=== PATIENT | male | born 1950 | race Caucasian/White ===

== ENCOUNTER → 2018-08-09 | Outpatient (CLI) | payer OTHER | LOC: BMCIMAGING 10:16 | PROVIDERS: ATTEND Internal Medicine Endocrinology, Diabetes & Metabolism | DX: Z13.820 Encounter for screening for osteoporosis (principal); M81.0 Age-related osteoporosis without current pathological fracture; Z87.81 Personal history of (healed) traumatic fracture; Z79.890 Hormone replacement therapy ==

== ENCOUNTER 2018-08-22 15:51 | Inpatient (IN) | payer OTHER ==
--- NOTE | 2018-08-22 17:16 | EDPHY ---
H & P Time Seen by Provider: 08/22/18 15:57 HPI/ROS: CHIEF COMPLAINT: Right hip pain HISTORY OF PRESENT ILLNESS: Patient states he was at [facility] in the parking lot this morning when he slipped on ice and fell injuring his right hip. He was wearing ski boots at the time. He did not ski that day and has been unable to bear weight on this hip since. He states [place] the [place] area [place] others skied and came in to the emergency department this afternoon for evaluation. He denies hitting his head. He denies neck pain or back pain. He has no numbness or tingling in his extremities. He has had no chest pain, shortness of breath, nausea or vomiting. REVIEW OF SYSTEMS: Constitutional: No fever, no chills. Eyes: No discharge. ENT: No sore throat. Cardiovascular: No chest pain, no palpitations. Respiratory: No cough, no shortness of breath. Gastrointestinal: No abdominal pain, no vomiting. Genitourinary: No dysuria. Musculoskeletal: No back pain. Right hip pain as above Skin: No rashes. Neurological: No headache. General Appearance: Alert, no distress. Eyes: Pupils equal and round no pallor or injection. ENT, Mouth: Mucous membranes moist. Respiratory: There are no retractions, lungs are clear to auscultation. Cardiovascular: Regular rate and rhythm. Gastrointestinal: Abdomen is soft and nontender, no masses, bowel sounds normal. Neurological: Awake, alert, cranial nerves intact. Normal strength and sensation all 4 extremities. Skin: Warm and dry, no rashes. Musculoskeletal: Neck is supple nontender. No CTLS spine tenderness to palpation. Extremities are symmetrical, pain with passive range of motion to right hip. No shortening or rotation to right leg. Distal circulation, sensation, movement intact. Pelvis is stable. Tenderness to palpation at the greater trochanter. Psychiatric: Patient is oriented X 3, there is no agitation. Medical/surgical history: Hypothyroid. Surgeries include anal fissure, tonsillectomy. Social history: No tobacco, ETOH or drugs. Last p.o. Was a protein shake at 2: 30 a.m.. Smoking Status: Never smoked Constitutional: Initial Vital Signs Temperature (C) 37.2 C 08/22/18 16:03 Heart Rate 70 08/22/18 16:03 Respiratory Rate 16 08/22/18 16:03 Blood Pressure 151/71 H 08/22/18 16:03 O2 Sat (%) 95 08/22/18 16:03 O2 Delivery Mode Room Air Allergies/Adverse Reactions: No Known Allergies Allergy (Unverified 08/22/18 16:12) Home Medications: Medication Instructions Recorded ARMOUR THYROID 08/22/18 Testosterone Cypionate 08/22/18 Medical Decision Making - Diagnostics Imaging Results: Imaging Impressions Hip X-Ray 08/22/18 16:08 Impression: Suspect nondisplaced fracture through the intertrochanteric region, right hip. Consider noncontrast CT for further characterization as clinically appropriate. ED Course/Re-evaluation: 4:[address] Chance. He asked that patient be sent to the [facility] Emergency Department. 4:40 Dr. Bell, radiology, called about hip fracture. 5:[address] Ronny Villar, [facility] ED attending. Differential Diagnosis: Differential diagnosis includes but is not limited to hip fracture, pelvic fracture, femur fracture, other trauma. After evaluation patient with nondisplaced intertrochanteric hip fracture on the right side. Discussed with Dr. Chance, orthopedist, with plan for transfer to [facility] emergency department via private vehicle as requested by patient and family. Patient's last oral intake was 230 and he was given strict instructions to have nothing by mouth on way to [facility]. No signs of other injury and stable for private vehicle transfer to [facility] Emergency Department. Departure - Departure Referrals: Portia Thorpe MD [Primary Care Provider] - As per Instructions
--- NOTE | 2018-08-22 18:55 | EDPHY ---
H & P Time Seen by Provider: 08/22/18 15:57 HPI/ROS: Chief complaint. Hip fracture HPI. Patient is 68-year-old male originally seen at [facility] and diagnosed with an intertrochanteric hip fracture. Transferred by private vehicle to our ED for further care. Patient tells me [place] and [place] and was standing by the car slipped on ice fell landing on his right hip. Unable to bear weight. Increased pain with range of motion. Denies any other injuries. He did not strike his head or lose consciousness. He has no neck pain. No chest pain or shortness of breath or abdominal pain. Pain right hip. Last ate protein shake at 3:00 p.m. ROS 10 systems were reviewed and negative with the exception of the elements mentioned in the history of present illness Past Medical/Surgical History: Hypothyroid, anal fissure Social History: Single, nonsmoker, no alcohol Smoking Status: Never smoked Physical Exam: General Appearance: Alert well-developed male mild distress vital signs are stable Eyes: Pupils equal and round no pallor or injection. ENT, Mouth: Mucous membranes are moist. Respiratory: There are no retractions, lungs are clear to auscultation. Cardiovascular: Regular rate and rhythm. Gastrointestinal: Abdomen is soft and nontender, no masses, bowel sounds normal. Neurological: Awake and alert, sensory and motor exams grossly normal. Skin: Warm and dry, no rashes. Musculoskeletal: Neck is supple nontender. Extremities pain to palpation over the greater trochanter. Increased pain with range of motion. No obvious swelling or deformity. Distal motor vascular sensitivity intact Psychiatric: Patient is oriented X 3, there is no agitation. Constitutional: Initial Vital Signs Temperature (C) 37.2 C 08/22/18 16:03 Heart Rate 70 08/22/18 16:03 Respiratory Rate 16 08/22/18 16:03 Blood Pressure 151/71 H 08/22/18 16:03 O2 Sat (%) 95 08/22/18 16:03 O2 Delivery Mode Room Air Allergies/Adverse Reactions: No Known Allergies Allergy (Unverified 08/22/18 16:12) Home Medications: Medication Instructions Recorded ARMOUR THYROID 08/22/18 Testosterone Cypionate 08/22/18 Medical Decision Making - Diagnostics Imaging Results: Imaging Impressions Hip X-Ray 08/22/18 16:08 Impression: Suspect nondisplaced fracture through the intertrochanteric region, right hip. Consider noncontrast CT for further characterization as clinically appropriate. Chest X-Ray 08/22/18 19:04 Impression: No acute findings in the chest. X-rays reviewed by me showing nondisplaced fracture through the intertrochanteric area right hip. Procedures: IV normal saline. 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 ED Course/Re-evaluation: Patient and I discussed imaging study results, treatment plan including need for surgery. He expresses understanding and agreement I consulted discussed case with Dr. Chance for Orthopedics who will see the patient and possibly take the patient to the OR tonight I consulted discussed case with Dr. Seaman, hospitalist who agrees to the admission Differential Diagnosis: X-ray shows nondisplaced intertrochanteric hip fracture on right. I also considered dislocation, contusion - Data Points Laboratory Results: 08/22/18 08/22/18 08/22/18 19:27 19:27 19:27 WBC Pending RBC Pending Hgb Pending Hct Pending MCV Pending MCH Pending MCHC Pending RDW Pending Plt Count Pending MPV Pending Neut % (Auto) Pending Lymph % (Auto) Pending Kings % (Auto) Pending Eos % (Auto) Pending Baso % (Auto) Pending Nucleat RBC Rel Count Pending Absolute Neuts (auto) Pending Absolute Lymphs (auto) Pending Absolute Monos (auto) Pending Absolute Eos (auto) Pending Absolute Basos (auto) Pending Absolute Nucleated RBC Pending Immature Gran % Pending Immature Gran # Pending PT Pending INR Pending APTT Pending Sodium Pending Potassium Pending Chloride Pending Carbon Dioxide Pending Anion Gap Pending BUN Pending Creatinine Pending Estimated GFR Pending Glucose Pending Calcium Pending Medications Given: Discontinued Medications Sodium Chloride (Ns) 1,000 mls @ 0 mls/hr IV EDNOW ONE; Wide Open PRN Reason: Protocol Stop: 08/22/18 19:05 Last Admin: 08/22/18 19:26 Dose: 1,000 mls Sodium Chloride (Ns) 1,000 mls @ 0 mls/hr IV EDNOW ONE; Wide Open PRN Reason: Protocol Stop: 08/22/18 19:05 Last Admin: 08/22/18 19:26 Dose: 1,000 mls Departure - Departure Disposition: [facility] Inpatient Acute Clinical Impression: Hip fracture Qualifiers: Encounter type: initial encounter Fracture type: closed Laterality: right Qualified Code(s): S72.001A - Fracture of unspecified part of neck of right femur, initial encounter for closed fracture Condition: Good Referrals: Portia Thorpe MD [Primary Care Provider] - As per Instructions
[2018-08-22] MEDS ORDERED: NS 1,000 ML IV ONE ×2 (19:04)
[2018-08-22 19:39] LABS: PLATELET COUNT 206 10^3/uL (150-400)
[2018-08-22 19:47] LABS: INR 1.2 (0.83-1.16); PROTIME(PATIENT) 15.4 SEC (12.0-15.0)
[2018-08-22] MEDS ORDERED: ONDANSETRON DISINTEGRATING 4 MG TAB PO PRN (20:26)
[2018-08-22] MEDS ORDERED: ONDANSETRON 4 MG/2 ML VIAL IVP PRN ×2 (20:26→23:20)
[2018-08-22] MEDS ORDERED: BUPIVACAINE/EPI 0.5% 30 ML SDV ONE (20:41)
--- NOTE | 2018-08-22 21:03 | PDGENHP ---
History and Physical - Chief Complaint Fall, R hip pain - History of Present Illness Med Hidalgo is a 68 yo M with a PMHx of Hypothyroidism who presents to [facility] s/ p fall found to have a R intertrochanteric hip fracture. Patient [place] in his [place] when he slipped and fell on his R side. He reports acute onset of R sided hip pain with movement. Currently pain is rated as 3/10 when stationary but increases with movement. He denies any CP, SOB, LH/Dizziness, syncope, head trauma, headache, neck pain, weakness, numbness/tingling. History Information - Allergies/Home Medication List Allergies/Adverse Reactions: No Known Allergies Allergy (Unverified 08/22/18 16:12) Home Medications: ARMOUR THYROID 08/22/18 [Last Taken Unknown] Testosterone Cypionate 08/22/18 [Last Taken Unknown] I have personally reviewed and updated: family history, medical history, social history, surgical history - Past Medical History Additional medical history: Hypothyroidism - Social History Smoking Status: Never smoked Review of Systems Review of Systems: ROS: 10pt was reviewed & negative except for what was stated in HPI & below Physical Exam Physical Exam: Temp Pulse Resp BP Pulse Ox 36.9 C 72 18 149/78 H 94 08/22/18 18:17 08/22/18 20:43 08/22/18 20:43 08/22/18 20:43 08/22/18 20:43 Constitutional: no apparent distress Eyes: PERRL Ears, Nose, Mouth, Throat: moist mucous membranes Cardiovascular: regular rate and rhythym Respiratory: no respiratory distress, clear to auscultation Gastrointestinal: normoactive bowel sounds Genitourinary: No dia in urethra Skin: warm Musculoskeletal: pain with ROM Neurologic: AAOx3 Psychiatric: interacting appropriately Lab Data & Imaging Review 08/22/18 19:27 08/22/18 19:27 WBC 7.94 10^3/uL (3.80-9.50) 08/22/18 19:27 RBC 4.79 10^6/uL (4.40-6.38) 08/22/18 19:27 Hgb 14.3 g/dL (13.7-17.5) 08/22/18 19:27 Hct 40.8 % (40.0-51.0) 08/22/18 19: MCV 85.2 fL (81.5-99.8) 08/22/18 19: MCH 29.9 pg (27.9-34.1) 08/22/18: MCHC 35.0 g/dL (32.4-36.7) 08/22/18: RDW 13.1 % (11.5-15.2) 08/22/18: Plt Count 206 10^3/uL (150-400) 08/22/18: MPV 9.8 fL (8.7-11.7) 08/22/18: Neut % (Auto) 86.7 % (39.3-74.2) H 08/22/18: Lymph % (Auto) 7.6 % (15.0-45.0) L 08/22/18: Sterling % (Auto) 5.0 % (4.5-13.0) 08/22/18: Eos % (Auto) 0.1 % (0.6-7.6) L 08/22/18: Baso % (Auto) 0.3 % (0.3-1.7) 08/22/18: Nucleat RBC Rel Count 0.0 % (0.0-0.2) 08/22/18: Absolute Neuts (auto) 6.89 10^3/uL (1.70-6.50) H 08/22/18: Absolute Lymphs (auto) 0.60 10^3/uL (1.00-3.00) L 08/22/18 19: Absolute Monos (auto) 0.40 10^3/uL (0.30-0.80) 08/22/18: Absolute Eos (auto) 0.01 10^3/uL (0.03-0.40) L 08/22/18: Absolute Basos (auto) 0.02 10^3/uL (0.02-0.10) 08/22/18 19: Absolute Nucleated RBC 0.00 10^3/uL (0-0.01) 08/22/18: Immature Gran % 0.3 % (0.0-1.1) 08/22/18 19:27 Immature Gran # 0.02 10^3/uL (0.00-0.10) 08/22/18 19:27 PT 15.4 SEC (12.0-15.0) H 08/22/18 19:27 INR 1.20 (0.83-1.16) H 08/22/18 19:27 APTT 22.0 SEC (23.0-38.0) L 08/22/18 19:27 Sodium 135 mEq/L (135-145) 08/22/18 19:27 Potassium 4.2 mEq/L (3.5-5.2) 08/22/18 19:27 Chloride 102 mEq/L (97-110) 08/22/18 19: Carbon Dioxide 21 mEq/l (22-31) L 08/22/18 19:27 Anion Gap 12 mEq/L (6-14) 08/22/18 19:27 BUN 27 mg/dL (7-23) H 08/22/18 19:27 Creatinine 0.9 mg/dL (0.7-1.3) 08/22/18 19:27 Estimated GFR > 60 08/22/18 19:27 Glucose 111 mg/dL (70-100) H 08/22/18 19:27 Calcium 9.3 mg/dL (8.5-10.4) 08/22/18 19:27 Assessment & Plan Assessment: Hip fracture (Acute) - S/p mechanical fall today - Found to have nondisplaced R sided Intertrochanteric hip fracture - Ortho consulted in ED, Dr. Chance to take patient to OR tonight - NPO for OR tonight - Start DVT PPx after surgery - PRN Pain medications Hypothyroidism - Continue home Synthroid when med rec is complete FEN: NPO DVT PPx: N/A, start after OR per ortho Code: FULL Dispo: Admit to Medicine
--- NOTE | 2018-08-22 21:09 | CPEKG ---
Test Reason : OPEN Blood Pressure : / mmHG Vent. Rate : 069 BPM Atrial Rate : 069 BPM P-R Int : 189 ms QRS Dur : 084 ms QT Int : 404 ms P-R-T Axes : 069 026 -03 degrees QTc Int : 433 ms Sinus rhythm Probable left atrial enlargement Low voltage, extremity leads Confirmed by Ronny Villar ([id number]) on 08/22/2018 9:09:07 PM Referred By: Confirmed By:Ronny Villar
[2018-08-22] MEDS ORDERED: fentaNYL 100 MCG/2 ML INJ IVP ONE (21:20)
[2018-08-22] MEDS ORDERED: fentaNYL 100 MCG/2 ML INJ ONE ×3 (21:26→22:29)
--- NOTE | 2018-08-22 22:25 | PDANEPAE ---
ANE History of Present Illness right hip fx ANE Past Medical History - Cardiovascular History Hx Hypertension: No Hx Arrhythmias: No Hx Chest Pain: No Hx Coronary Artery / Peripheral Vascular Disease: No Hx CHF / Valvular Disease: No Hx Palpitations: No - Pulmonary History Hx COPD: No Hx Asthma/Reactive Airway Disease: No Hx Recent Upper Respiratory Infection: No Hx Oxygen in Use at Home: No Hx Sleep Apnea: No - Endocrine History Hx Diabetes: No Hypothyroid: Yes Hyperthyroid: No Obesity: no ANE Review of Systems Review of systems is: negative Review of Systems: - Exercise capacity Exercise capacity: >=4 METS ANE Patient History - Allergies Allergies/Adverse Reactions: No Known Allergies Allergy (Unverified 08/22/18 16:12) - Home Medications Home medications: home medication list seen and reviewed Home Medications: ARMOUR THYROID 08/22/18 [Last Taken Unknown] Testosterone Cypionate 08/22/18 [Last Taken Unknown] - NPO status NPO Since - Liquids (Date): 08/22/18 NPO Since - Liquids (Time): 15:00 NPO Since - Solids (Date): 08/22/18 NPO Since - Solids (Time): 15:00 - Anes Hx Anes Hx: post operative nausea and vomiting - Smoking Hx Smoking Status: Never smoked ANE Labs/Vital Signs - Labs Result Diagrams: 08/22/18 19:27 08/22/18 19:27 - Vital Signs Blood Pressure: 149/78 Heart Rate: 72 Respiratory Rate: 18 O2 Sat (%): 94 Height: 172.72 cm Weight: 65.771 kg ANE Physical Exam - Airway Neck exam: FROM Mallampati Score: Class 1 Mouth exam: normal dental/mouth exam - Pulmonary Pulmonary: no respiratory distress - Cardiovascular Cardiovascular: regular rate and rhythym - ASA Status ASA Status: II, E ANE Anesthesia Plan Anesthesia Plan: general endotracheal anesthesia
[2018-08-22] MEDS ORDERED: ONDANSETRON 4 MG/2 ML VIAL ONE (22:29)
[2018-08-22] MEDS ORDERED: PROPOFOL 200 MG/20 ML VIAL ONE (22:29)
[2018-08-22] MEDS ORDERED: DEXAMETHASONE 4 MG/ML VIAL ONE (22:29)
[2018-08-22] MEDS ORDERED: LIDOCAINE 2% 5 ML SDV ONE (22:29)
[2018-08-22] MEDS ORDERED: ROCURONIUM 50 MG/5 ML VIAL ONE ×2 (22:29→23:17)
[2018-08-22] MEDS ORDERED: CEFAZOLIN 2 GM/DEXTROSE/100 ML BAG IV ONE (22:31)
[2018-08-22] MEDS ORDERED: ceFAZolin 2 GM/DEXTROSE 100 ML IV ONE (22:35)
--- NOTE | 2018-08-22 22:36 | SOAPPROG ---
SOAP Progress Note Assessment/Plan: Assessment: right it femur fx - nondisplaced Plan:consult to be dictated plan for tfn to secure nondisplace it femur fx risks benefits and alternatives reviewed, consent signed. 08/22/18 22:35 Objective: Vital Signs Temp Pulse Resp BP Pulse Ox 36.9 C 72 18 149/78 H 94 08/22/18 21:15 08/22/18 22:26 08/22/18 22:26 08/22/18 22:26 08/22/18 22:26 08/21/18 08/22/18 08/23/18 05:59 05:59 05:59 Intake Total 1999 Balance 1999 PT 15.4 SEC (12.0-15.0) H 08/22/18 19:27 INR 1.20 (0.83-1.16) H 08/22/18 19:27 ICD10 Worksheet Patient Problems: Problems Problem Status Onset Hip fracture Acute
[2018-08-22] MEDS ORDERED: ePHEDrine SULFATE 25 MG/5 ML SYR ONE (22:56)
--- NOTE | 2018-08-22 23:00 | POSTANESTH ---
Post Anesthetic Evaluation Cardiovascular Status: Normal, Stable Respiratory Status: Normal, Stable Level of Consciousness/Mental Status: Can Participate in Eval, Mildly Sleepy, Arousable Pain Control: Adequate, Prn Tx Ordered Nausea/Vomiting Control: Adequate, Prn Tx Ordered Complications Possibly Related to Anesthesia: None Noted
[2018-08-22] MEDS ORDERED: HYDROmorphONE/DILAUDID 2 MG/ML INJ IVP PRN (23:20)
[2018-08-22] MEDS ORDERED: fentaNYL 100 MCG/2 ML INJ IVP PRN (23:20)
[2018-08-22] MEDS ORDERED: LR 500 ML IV PRN (23:20)
[2018-08-22] MEDS ORDERED: DIAZEPAM 5 MG/ML 1 ML SYR IVP PRN (23:20)
[2018-08-22] MEDS ORDERED: METOCLOPRAMIDE 10 MG/2 ML VIAL IVP PRN (23:20)
[2018-08-22] MEDS ORDERED: ALBUTEROL 3 ML DEYVIAL IH PRN (23:20)
[2018-08-22] MEDS ORDERED: NALOXONE HCL 0.4 MG/ML INJ IVP PRN (23:20)
[2018-08-22] MEDS ORDERED: oxyCODONE IR 5 MG TAB PO PRN (23:20)
[2018-08-22] MEDS ORDERED: ACETAMINOPHEN 500 MG TAB PO PRN (23:20)
[2018-08-22] MEDS ORDERED: HYDROCODONE/APAP 5/325 TAB PO PRN (23:20)
[2018-08-22] MEDS ORDERED: PROMETHAZINE HCL 25 MG/ML INJ IVP PRN (23:20)
[2018-08-22] MEDS ORDERED: SUGAMMADEX SODIUM 200 MG/2 ML VIAL IVP ONE (23:24)
--- NOTE | 2018-08-22 23:40 | POSTOPPROG ---
Post Op Note Date of Operation: 08/22/18 Surgeon: Jeffrey Chance Light Out Examiner: rachid Anesthesia: GET(General Endotracheal) Pre-op Diagnosis: right it femur fx Post-op Diagnosis: same Indication: same Procedure: orif right femur fx Inf/Abcess present in the surg proc area at time of surgery?: No Depth: Deep Incisional (Fascial) EBL: 100-500
[2018-08-23] MEDS ORDERED: HYDROCODONE/APAP 10/325 TAB PO PRN (02:24)
[2018-08-23] MEDS: HYDROCODONE/APAP 5/325 TAB PO PRN ×2 (02:40→06:29)
[2018-08-23] MEDS: ceFAZolin 2 GM/DEXTROSE 100 ML IV SCH ×2 (05:43→14:55)
--- NOTE | 2018-08-23 07:39 | SOAPPROG ---
SOAP Progress Note Assessment/Plan: Assessment: right it femur fx - nondisplaced Plan:consult to be dictated plan for tfn to secure nondisplace it femur fx risks benefits and alternatives reviewed, consent signed. 25 % wb right lower extremity rom as artur ice prn may shower without bandage, no soaking and/or immersion daily dressing changes f/u at two weeks seek attn for increasing pain, drainage, or other focal complaint 08/22/18 22:35 08/23/18 07:39 Subjective: minmial pain no cp or sob artur po Objective: Vital Signs Temp Pulse Resp BP Pulse Ox 36.6 C 64 18 130/65 H 95 08/23/18 00:59 08/23/18 00:59 08/23/18 00:59 08/23/18 00:59 08/23/18 00:59 08/22/18 08/23/18 08/24/18 05:59 05:59 05:59 Intake Total 2000 100 Output Total 200 1200 Balance 1800 -1100 PT 15.4 SEC (12.0-15.0) H 08/22/18 19:27 INR 1.20 (0.83-1.16) H 08/22/18 19:27 dressing intact [ intact pf,df,ehl toes warm and pink neg homans juanjo xrays stable anatomic alignement no fx or lucency ICD10 Worksheet Patient Problems: Problems Problem Status Onset Hip fracture Acute
--- NOTE | 2018-08-23 08:21 | HOSPPROG ---
Hospitalist Progress Note Assessment/Plan: Med Hidalgo is a 68 yo M with a PMHx of Hypothyroidism who presents to [facility] s/ p fall found to have a R intertrochanteric hip fracture. First encounter, chart reviewed, discussed his care w Dr Chance. * right sided nondisplaced intertrochanteric Hip fracture (Acute) -s/p TFN on 08/12 -25 % wb right lower extremity -PT and OT to see * mechanical fall -PT and OT *Hypothyroidism - Synthroid *DVT prophylaxis -LMWH *Plan: will check labs in a.m., see how he does, he is hopeful to go home Subjective: Med is feeling fine overall, minimal pain this morning. Objective: Vital Signs Temp Pulse Resp BP Pulse Ox 36.6 C 62 16 100/51 L 94 08/23/18 08:00 08/23/18 08:00 08/23/18 08:00 08/23/18 08:00 08/23/18 08:00 08/22/18 08/23/18 08/24/18 05:59 05:59 05:59 Intake Total 600 Output Total 200 1200 Balance -200 -600 PT 15.4 SEC (12.0-15.0) H 08/22/18 19:27 INR 1.20 (0.83-1.16) H 08/22/18 19:27 - Physical Exam Constitutional: no apparent distress, appears nourished Eyes: PERRL Ears, Nose, Mouth, Throat: hearing normal Cardiovascular: regular rate and rhythym Respiratory: no respiratory distress Gastrointestinal: normoactive bowel sounds Skin: warm Musculoskeletal: generalized weakness Neurologic: AAOx3 Psychiatric: interacting appropriately ICD10 Worksheet Patient Problems: Problems Problem Status Onset Hip fracture Acute
--- NOTE | 2018-08-23 08:22 | PDMN ---
Medical Necessity Medical necessity: Pt meets IP criteria as of 08/23/2018 per and [facility] [id number] ( hip fracture-open repair); ESt los > 2 mn for ongoing tx and management of R hip fracture s/p fall; requiring ortho consult with surgical intervention, pain control, and therapies.
[2018-08-23] MEDS ORDERED: MAGNESIUM HYDROXIDE 30 ML UDCUP PO PRN (08:25)
[2018-08-23] MEDS ORDERED: BISACODYL 10 MG SUPP PR PRN (08:25)
[2018-08-23] MEDS ORDERED: LACTULOSE 20 GM/30 ML UDCUP PO PRN (08:25)
[2018-08-23] MEDS: ENOXAPARIN 40 MG/0.4 ML SYR SC SCH (09:29)
[2018-08-23] MEDS: SENNOSIDES/DOCUSATE SODIUM TAB PO SCH (09:29)
[2018-08-23] MEDS: POLYETHYLENE GLYCOL 3350 17 GM PKT PO SCH (09:30)
--- NOTE | 2018-08-23 10:06 | GCON ---
EMERGENCY DEPARTMENT CONSULTATION CHIEF COMPLAINT: Right hip pain. HISTORY OF PRESENT ILLNESS: Med is a 68-year-old gentleman who was at the [employer] [employer]. In t he parking lot, he slipped on ice and landed across his right hip. He was wearing ski boots and was unable to bear weight after this occurred. He stayed at the ski area and then came to the emergency department after his friends were done skiing for the day. Denies any loss of consciousness. Has no other focal complaints. No chest pain, shortness of breath, belly pain, or other symptoms. PAST MEDICAL HISTORY: Hypothyroidism. PAST SURGICAL HISTORY: Anal fissure and tonsillectomy. MEDICATIONS: He takes thyroid and testosterone. ALLERGIES: No known drug allergies. SOCIAL HISTORY: No tobacco. Minimal alcohol. REVIEW OF SYSTEMS: Negative for chest pain, shortness of breath, belly pain, back pain, numbness or tingling, other joint-related complaints, except as above. OBJECTIVE: GENERAL: He is a healthy gentleman in no acute distress. HEENT: Normocephalic, atrauma tic. EXTREMITIES: Bilateral upper extremities are unremarkable. Has no crepitus, tenderness, step- off or deformity. Leg lengths are equal. He has tenderness about the right hip and greater trochant er. There is no other focal tenderness to bilateral lower extremities across the thighs, knees, calv es, lower extremity and feet. Sensation is grossly intact to light touch across the radial, ulnar, m edian nerve distributions, bilateral upper extremities and grossly to light touch through bilateral l ower extremities. RADIOGRAPHS: AP and lateral of his pelvis demonstrate a nondisplaced intertrochanteric fracture of h is right hip. TREATMENT PLAN: Given the fracture position and his age, I have recommended stabilization with an in tramedullary implant. I have outlined the surgical procedure, risks, benefits, and alternatives at [facility]. He wishes to proceed. Written consent will be signed and placed in the patient's chart. /[id number]/MODL
--- NOTE | 2018-08-23 14:39 | ASMTCMCOM ---
CM Note CM Note Notes: Pt is a 68 yo M, [place]. Currently waiting on PT/OT evals. DC plan TBD. CM to follow. Plan: TBD Date Signed: 08/23/2018 02:38 PM Electronically Signed By:SERGE Avelar
[2018-08-23] MEDS: ACETAMINOPHEN 325 MG TAB PO PRN (19:42)
[2018-08-24] MEDS: SENNOSIDES/DOCUSATE SODIUM TAB PO SCH ×2 (01:51→08:24)
[2018-08-24] MEDS: ACETAMINOPHEN 325 MG TAB PO PRN ×2 (05:22→13:59)
--- NOTE | 2018-08-24 06:34 | SOAPPROG ---
SOAP Progress Note Assessment/Plan: Assessment: right it femur fx - nondisplaced Plan:consult to be dictated plan for tfn to secure nondisplace it femur fx risks benefits and alternatives reviewed, consent signed. 25 % wb right lower extremity rom as artur ice prn may shower without bandage, no soaking and/or immersion daily dressing changes f/u at two weeks seek attn for increasing pain, drainage, or other focal complaint d/c home if cleared by pt 08/22/18 22:35 08/23/18 07:39 08/24/18 06:34 Subjective: mild pain no cp or sob artur po Objective: Vital Signs Temp Pulse Resp BP Pulse Ox 36.9 C 66 16 100/48 L 96 08/24/18 04:00 08/24/18 04:00 08/24/18 04:00 08/24/18 04:00 08/24/18 04:00 Laboratory Results 08/24/18 04:50 08/23/18 08/24/18 08/25/18 05:59 05:59 05:59 Intake Total 2530 Output Total 200 2600 Balance -200 -70 PT 15.4 SEC (12.0-15.0) H 08/22/18 19:27 INR 1.20 (0.83-1.16) H 08/22/18 19:27 dressing intact intact pf,df,ehl toes warm and pink neg homans juanjo ICD10 Worksheet Patient Problems: Problems Problem Status Onset Hip fracture Acute
[2018-08-24] MEDS: ENOXAPARIN 40 MG/0.4 ML SYR SC SCH (08:25)
[2018-08-24] MEDS: POLYETHYLENE GLYCOL 3350 17 GM PKT PO SCH (08:25)
[2018-08-24] MEDS ORDERED: THYROID 60 MG TAB PO SCH (09:00)
--- NOTE | 2018-08-24 10:40 | ASMTCMCOM ---
CM Note CM Note Notes: Discussed case with [employer] Specialist - plan is for patient to d/c home independently with support of family. Therapy has evaluated and cleared for home. Family to transport. CM available should needs arise. Plan: Independent Date Signed: 08/24/2018 10:35 AM Electronically Signed By:Yuliana Rodriguez RN
--- NOTE | 2018-08-24 11:09 | HOSPPROG ---
Hospitalist Progress Note Assessment/Plan: Med Hidalgo is a 68 yo M with a PMHx of Hypothyroidism who presents to [facility] s/ p fall found to have a R intertrochanteric hip fracture. * right sided nondisplaced intertrochanteric Hip fracture (Acute) -s/p TFN on 08/12 -25 % wb right lower extremity -PT and OT * mechanical fall -PT and OT *Hypothyroidism - Synthroid *DVT prophylaxis -LMWH *Plan: dc home w f/u w Dr Chance Subjective: Med is feeling well, has no complaints. Objective: Vital Signs Temp Pulse Resp BP Pulse Ox 37.2 C 62 16 98/53 L 95 08/24/18 07:39 08/24/18 07:39 08/24/18 07:39 08/24/18 07:39 08/24/18 07:39 Laboratory Results 08/24/18 04:50 08/23/18 08/24/18 08/25/18 05:59 05:59 05:59 Intake Total 2530 450 Output Total 200 2600 350 Balance -200 -70 100 PT 15.4 SEC (12.0-15.0) H 08/22/18 19:27 INR 1.20 (0.83-1.16) H 08/22/18 19:27 - Physical Exam Constitutional: no apparent distress, appears nourished, not in pain Eyes: PERRL Ears, Nose, Mouth, Throat: hearing normal Respiratory: no respiratory distress Skin: warm Musculoskeletal: generalized weakness Neurologic: AAOx3 Psychiatric: interacting appropriately ICD10 Worksheet Patient Problems: Problems Problem Status Onset Hip fracture Acute
--- NOTE | 2018-08-24 11:48 | PDIAF ---
- Diagnosis Diagnosis: r sided nondisplace hip fx s/p TFN Code Status: Full Code - Medication Management Discharge Medications: electronically signed and located in the Home Medication List. - Orders Services needed: Home Care, Physical Therapy, Occupational Therapy Home Care Face to Face: I certify that this patient was under my care and that I had the required [id number] encounter meeting the encounter requirements on the discharge day. My findings support the fact that the patient is homebound as defined in Home Care Face to Face Continued: CMS Chapter 7 Medicare Benefits Manual 30.1.1 , The condition of the patient is such that there exists a normal inability to leave home and consequently, leaving home would require a considerable and taxing effort. Diet Recommendation: no restrictions on diet Diet Texture: Regular Texture Diet Additional Instructions: 25 % wb right lower extremity rom as artur ice prn may shower without bandage, no soaking and/or immersion daily dressing changes f/u at two weeks seek attn for increasing pain, drainage, or other focal complaint Lovenox for next 2 weeks a script for pain medications was sent to the [facility]'s pharmacy just in case you need it (take stool softener while on this) use Tylenol for pain talk w Dr Chance if he is ok w you taking Naproxen, it can affect bone healing if you develop fever, chills, swelling in your right calf; return to the ER - Follow Up Care Current Providers and Referrals: Portia Thorpe MD [Primary Care Provider] - As per Instructions Jeffrey Chance MD [Medical Doctor] -
[2018-08-24 11:49] VITALS: BP 104/53
--- NOTE | 2018-08-24 13:19 | GDS ---
DISCHARGE DIAGNOSIS: 1. Right-sided nondisplaced intertrochanteric hip fracture. 2. Mechanical fall. 3. Hypothyroidism. CONSULTATIONS: Dr. Jeffrey Chance. BRIEF HISTORY: The patient is a 68-year-old male with a history of hypothyroidism, but otherwise is extremely healthy. [place] and [place], and fell on his right side. He had acute right-sided hip pain. Did not hit his head. He was seen and evaluated by Dr. Chance. He had surgery on August 22. He had an ORIF of the right femur fracture. He did very well. The plan is for him to return home to be 25% weightbearing on his right foot. He will get home care to follow up with him. HOSPITAL COURSE: 1. Right-sided nondisplaced intertrochanteric hip fracture. He is status post a TFN on 08/22. He is doing extremely well. I have ordered home care to follow up with him. 2. Mechanical fall, stable. 3. Hypothyroidism, on Synthroid. DISCHARGE CONDITION: Stable. Blood pressure is 104/53, heart rate of 62, respiratory rate of 16, O2 sats on room air 90%, temperature 36.7 Celsius. DISCHARGE MEDICATIONS: Please see the EMR. DISCHARGE INSTRUCTIONS: 1. Twenty-five percent weightbearing to the right lower extremity. Range of motion as tolerated. 2. Follow up with Dr. Chance in 2 weeks. 3. To seek attention if he has a fever, increasing pain, drainage. 4. Lovenox for the next 2 weeks. /[id number]/MODL MTDD
--- NOTE | 2018-08-24 14:36 | ASMTLACE ---
LACE Length of stay for Answers: 1 day current admission Acuity / Level of Answers: Yes Care: Did the patient have an inpatient admission? Comorbidities - select Answers: Other Notes: Hypothyroid all that apply # of Emergency department Answers: 1-2 visits in the last 6 months Score: 6 Date Signed: 08/24/2018 02:36 PM Electronically Signed By:SERGE Avelar
--- NOTE | 2018-08-24 14:36 | ASMTDCNOTE ---
Case Management Discharge Discharge Order Complete? Answers: Yes Transportation Arranged Answers: Family/Friends Faxed Final Orders Answers: Yes Agency/Facility Transfer Answers: Yes Report Printed & Faxed to Receiving Agency Discharge Comments Notes: Pt being discharged with [facility] PT/OT, per pt and MD request. No other CM needs identified. Date Signed: 08/24/2018 02:35 PM Electronically Signed By:SERGE Avelar
--- NOTE | 2018-08-25 08:47 | ASDISCHSUM ---
Discharge Information Plan Status:Home with Home Health Medically Cleared to Leave: Discharge Date:08/24/2018 02:27 PM D/C Disposition:Home Health Service ADT D/C Disposition:Home, Routine, Self-Care Projected Discharge Date:08/24/2018 11:00 AM Transportation at D/C: Discharge Delay Reason: Follow-Up Date:08/24/2018 11:00 AM Discharge Slot: Final Diagnosis: Placement Information Referral Type:*Home Health Care Services Referral ID:[id number] Provider Name:[facility] Address 1:[address] [place] [address] Address 2: City:[place] Selection Factors: State:[place] Patient Contact Information Contact Name:VANDANA Relationship:Son Address: City: [facility] Phone: [facility]/Zip Code: Email: Financial Information Financial Class:Medicare Primary Plan Desc:MEDICARE INPATIENT Primary Plan Number:[id number] Secondary Plan Desc:LetGive Secondary Plan Number:[id number] Assessment Information LACE LACE Length of stay for Answers: 1 day current admission Acuity / Level of Answers: Yes Care: Did the patient have an inpatient admission? Comorbidities - select Answers: Other Notes: Hypothyroid all that apply # of Emergency department Answers: 1-2 visits in the last 6 months Score: 6 Date Signed: 08/24/2018 02:36 PM Electronically Signed By:SERGE Avelar [facility] Progress Note CM Note CM Note Notes: Pt is a 68 yo M, [place]. Currently waiting on PT/OT kishor. DC plan TBD. CM to follow. Plan: TBD Date Signed: 08/23/2018 02:38 PM Electronically Signed By:SERGE Avelar [facility] CM Progress Note CM Note CM Note Notes: Discussed case with [employer] - plan is for patient to d/c home independently with support of family. Therapy has evaluated and cleared for home. Family to transport. CM available should needs arise. Plan: Independent Date Signed: 08/24/2018 10:35 AM Electronically Signed By:Yuliana Rodriguez RN Case Management Discharge Plan Note Case Management Discharge Discharge Order Complete? Answers: Yes Transportation Arranged Answers: Family/Friends Faxed Final Orders Answers: Yes Agency/Facility Transfer Answers: Yes Report Printed & Faxed to Receiving Agency Discharge Comments Notes: Pt being discharged with [facility] PT/OT, per pt and MD request. No other CM needs identified. Date Signed: 08/24/2018 02:35 PM Electronically Signed By:SERGE Avelar Intervention Information Intervention Type:*Occurence 72 Date of Service:08/24/2018 02:50 PM Patient Type:Inpatient Staff Member:Virginie Howard Hours: Discipline: Severity: Comment:
--- NOTE | 2018-08-25 11:45 | GOP ---
DATE OF OPERATION: SURGEON: Jeffrey Chance MD PREOPERATIVE DIAGNOSIS: Right intertrochanteric femur fracture. POSTOPERATIVE DIAGNOSIS: Right intertrochanteric femur fracture. PROCEDURE PERFORMED: Open reduction, internal fixation, right intertrochanteric femur fracture with intramedullary implant. FINDINGS: SPECIMENS: To Pathology, none. INDICATIONS: The patient is a 68-year-old gentleman who fell while at [facility] on the ice tio or to skiing. He complained of hip pain. He waited through the day while his friends skied. He con tinued to have pain, so was brought to the emergency department. X-rays demonstrated a nondisplaced intertrochanteric femur fracture. Given the fracture location and characteristics, I have recommende d surgical stabilization. I outlined the surgical procedure, risks, benefits, and alternatives. He wished to proceed. Written consent was signed and placed in the patient's chart. DESCRIPTION OF PROCEDURE: The patient was identified in the preanesthesia area. The right hip clear ly demarcated as the operative site with an indelible marker. He was given 2 g of Ancef intravenousl y in route to the operative suite. In the OR, general endotracheal anesthesia was administered. He was positioned in the supine position on the fracture table with a well-padded perineal post. The hi p was then positioned with the use of the traction boot and fluoroscopic guidance into an anatomic po sition. The hip was then sterilely prepped and draped in usual fashion. A shower curtain drape was utilized. Appropriate time-out procedure was carried out. A percutaneous incision was made over the proximal lateral aspect of the greater trochanter. A guide wire advanced into the central position of the greater trochanter and opened with a single stage ream er. An 11 mm short TFN nail was then placed and confirmed to be fully seated. The referencing guide was attached and a separate percutaneous incision was made over the distal aspect of the intertrocha nteric region. Guidewire was advanced into a central position in the femoral head on both AP and lat eral projections. This was reamed with a step reamer and a 100 mm head screw blade was then impacted and confirmed to be fully seated. This was secured proximally and then dynamized, and a distal inte rlocking screw was placed through the same incision. Intraoperative x-rays demonstrated anatomic pos itioning without displacement. The wounds were copiously irrigated, closed in layers using 0 Vicryl, 2-0 Monocryl, Jorge L, and injected with 20 cc of 0.5% Marcaine with epinephrine. A sterile dressing was applied. The patient was awak ened, extubated, and taken to recovery room in good and stable condition. TOTAL TOURNIQUET TIME: None. COMPLICATIONS: None. IMPLANTS: As above. DISPOSITION: He will be admitted to the hospitalist service. He is 25% weight bearing for 2 weeks. /[id number]/MODL
== END 2018-08-24 14:27 | disposition home health service (06) | DRG 482 ==
LOC: F3N 08-23 00:47 → OBSVTOIN 08-23 01:35
PROVIDERS: ADMIT Internal Medicine; ATTEND Internal Medicine
PROC: 0QS606Z Reposition Right Upper Femur with Intramedullary Internal Fixation Device, Open Approach (ICD-10-PCS; principal; 2018-08-22 22:30)
DX: S72.144A Nondisplaced intertrochanteric fracture of right femur, initial encounter for closed fracture (principal); E86.9 Volume depletion, unspecified; E03.9 Hypothyroidism, unspecified; W01.0XXA Fall on same level from slipping, tripping and stumbling without subsequent striking against object, initial encounter; Y92.481 Parking lot as the place of occurrence of the external cause
CPT/HCPCS: 73502-PO; 97116-GP; 97161-GP; 97165-GO; 97530-GO; 97535-GO; C1713; G8978-GP-CI; G8978-GP-CJ; G8979-GP-CI; G8980-GP-CI; G8987-GO-CI; G8987-GO-CK; G8988-GO-CI; G8989-GO-CI; J0690; J1100; J1650; J2405; J2704; J3010

== ENCOUNTER → 2018-10-05 | Outpatient (CLI) | payer OTHER | LOC: BMCIMAGING 09:47 | PROVIDERS: ATTEND Physician Assistant | DX: S72.141D Displaced intertrochanteric fracture of right femur, subsequent encounter for closed fracture with routine healing (principal) ==